=== PATIENT | male | born 1960 | race Caucasian/White ===

== ENCOUNTER 2020-05-18 16:50 | Emergency (ER) | payer OTHER ==
[~2020-05-18] VITALS: Ht 182.9 cm; Wt 90.7 kg
[2020-05-18 17:00] VITALS: BP_SYST 147
--- NOTE | 2020-05-18 17:00 | NUR ---
Patient to ER bed 04 to gown for evaluation. Side rails up.
--- NOTE | 2020-05-18 17:12 | NUR ---
Patient brought medical clearance from [facility]. Patient has been hyperverbal, attempting to strike out, uncooperative and undirectable. Patient is AO x 2. Has history fo Schizoaffective, bipolar, MDD, COPD, VITALIY, HTN. Patient is a full code, going to [address] Patient also has a healing scabed wount to the right mid chest with redness. Denies any pain. No other complaints/ injuries per patient or as noted. Will continue to monitor.
--- NOTE | 2020-05-18 17:37 | NUR ---
ER at bedside examining patient.
[2020-05-18 17:40] LABS: BASOPHILS # (AUTO) 0.1 K/uL (0.0-0.2); BASOPHILS % (AUTO) 1.1 % (0.0-2.0); EOSINOPHILS # (AUTO) 0.4 K/uL (0.0-0.4); EOSINOPHILS % (AUTO) 6.4 % (0.0-4.0); HEMATOCRIT 39.3 % (36-54); HEMOGLOBIN 12.9 g/dL (14.0-18.0); LYMPHOCYTES # (AUTO) 1.5 K/uL (1.0-5.5); LYMPHOCYTES % (AUTO) 24.6 % (20.5-51.5); MEAN CORPUSCULAR HEMOGLOBIN 30 pg (27-31); MEAN CORPUSCULAR HGB CONC 33 % (32-36); MEAN CORPUSCULAR VOLUME 92 fL (79.0-98.0); MONOCYTES % (AUTO) 16.9 % (1.7-9.3); NEUTROPHILS # (AUTO) 3.1 K/uL (1.8-7.7); PLATELET COUNT (AUTO) 189 K/uL (130-430); RED BLOOD CELL COUNT(AUTO) 4.26 MIL/uL (4.2-6.2); RED CELL DISTRIBUTION WIDTH 14.7 % (9.0-15.0)
[2020-05-18] MEDS ORDERED: IBUPROFEN 800 MG TABLET PO ONE (17:45)
--- NOTE | 2020-05-18 17:55 | NUR ---
medicated per md orders. Patient tolerated well.
[2020-05-18 18:02] LABS: CALCIUM 8.5 mg/dL (8.4-11.0); CREATININE 0.95 mg/dL (0.55-1.30); POTASSIUM 4.3 mmol/L (3.5-5.1)
[2020-05-18 18:09] LABS: TOTAL BILIRUBIN 0.2 mg/dL (0.0-1.0)
[2020-05-18 18:18] LABS: BILIRUBIN,URINE NEGATIVE (NEGATIVE); CLARITY/URINE CLEAR (CLEAR); COLOR,URINE YELLOW (YELLOW); GLUCOSE,URINE NEGATIVE (NEGATIVE); KETONES,URINE NEGATIVE (NEGATIVE); LEUKOCYTE ESTERASE ,URINE NEGATIVE (NEGATIVE); NITRITE, URINE NEGATIVE (NEGATIVE); PROTEIN URINE NEGATIVE (NEGATIVE)
[2020-05-18 18:22] LABS: BLOOD, URINE TRACE (NEGATIVE)
[2020-05-18 18:38] LABS: BARBITURATE, URINE NEGATIVE (NEG <=200); BENZODIAZEPINE, URINE POSITIVE (NEG <=150); CANNABINOID, URINE NEGATIVE (NEG <=50); COCAINE, URINE NEGATIVE (NEG <=150); METHAMPHETAMINES SCREEN,URINE NEGATIVE (NEG <=500); OPIATE, URINE NEGATIVE (NEG <=100); PHENCYCLIDINE SCREEN,URINE NEGATIVE (NEG <=25); URINE AMPHETAMINE NEGATIVE (NEG <=500); URINE METHADONE NEGATIVE (NEG <=200); URINE OXYCODONE SCREEN NEGATIVE (NEG <=100)
[2020-05-18 18:39] LABS: UR TRICYCLIC ANTIDEPRESSANTS POSITIVE (NEG <=300); URINE PROPOXYPHENE SCREEN NEGATIVE (NEG <=300)
[2020-05-18 18:56] LABS: BACTERIA,URINE FEW /HPF (None Seen); RBC,URINE 0-3 /HPF (0-3); WBC,URINE 0-3 /HPF (0-3)
[2020-05-18 18:57] LABS: MUCUS,URINE None Seen /LPF (None Seen)
--- NOTE | 2020-05-18 19:27 | NUR ---
Patient to be transferred to [facility] Room 61B. Is being transferred due to higher level of care. Receiving facility has accepting physician and available space. ER physician has signed transfer form. Patient or responsible democrat has agreed to transfer and signed form. Patient belongings inventoried and will be sent with patient. Copy of nursing notes, lab reports, EKG, Physicians Orders and X-rays to be sent with patient. Report called to ALDO Dacosta at receiving facility. Receiving physician is Jessica. [facility] has been called for transfer. ETA is [phone]
[2020-05-18 20:40] VITALS: BP_SYST 132
--- NOTE | 2020-05-18 20:40 | NUR ---
report given to [facility]. VSS. No acute distress noted
== END 2020-05-18 20:40 ==
LOC: SED 16:50
DX: L03.313 Cellulitis of chest wall (principal); J44.9 Chronic obstructive pulmonary disease, unspecified; I10 Essential (primary) hypertension; Z88.0 Allergy status to penicillin; Z88.8 Allergy status to other drugs, medicaments and biological substances; Z20.828 Contact with and (suspected) exposure to other viral communicable diseases
CPT/HCPCS: 36415; 80053; 80307; 81000; 84484; 85025; 87081; 87426; 99285; G0480; G0481; G0482